=== PATIENT | female | born 1990 | race Caucasian/White ===

== ENCOUNTER → 2021-06-13 15:13 | Outpatient (BNVA) | payer MEDICAID, SELFPAY | PROVIDERS: Family Provider Family Medicine; PCP Obstetrics & Gynecology; Visit Provider Obstetrics & Gynecology | DX: R87.610 Atypical squamous cells of undetermined significance on cytologic smear of cervix (ASC-US) (principal); R87.810 Cervical high risk human papillomavirus (HPV) DNA test positive | CPT/HCPCS: 81025; 88305 ==

== ENCOUNTER → 2021-07-22 13:01 | Outpatient (BNVA) | payer MEDICAID, SELFPAY | PROVIDERS: Family Provider Family Medicine; PCP Obstetrics & Gynecology; Visit Provider Obstetrics & Gynecology | DX: Z20.822 Contact with and (suspected) exposure to COVID-19 (principal); Z30.2 Encounter for sterilization | CPT/HCPCS: 87635 ==

== ENCOUNTER 2021-07-27 07:01 | Day surgery (SDC) | payer MEDICAID, SELFPAY ==
[2021-07-25 10:44] VITALS: BMI 23.8
[2021-07-25 11:18] LABS: Basophils # 0.1 10^3/uL (0.0-0.1); Basophils % 0.6 %; Eosinophils # 0.3 10^3/uL (0.0-0.8); Eosinophils % 2.6 %; Hematocrit 42.5 % (37.0-47.0); Lymphocytes # 2.7 10^3/uL (0.8-4.8); Lymphocytes % 23.2 %; Mean Corpuscular HGB Conc 32.9 g/dL (30.0-36.0); Mean Corpuscular Hemoglobin 31.3 pg (28.0-34.0); Mean Corpuscular Volume 94.9 fl (81-99); Mean Platelet Volume 11.6 fL (7.4-10.4); Monocytes # 0.6 10^3/uL (0.2-0.9); Monocytes % 5.3 %; Neutrophils # 7.87 10^3/uL (1.8-7.7); Nucleated Red Blood Cells % 0 %; Platelet Count 354 10^3/cmm (130-400); Red Blood Count 4.48 10^6/uL (4.1-5.3); Red Cell Distribution Width 13.2 % (12.1-15.1); White Blood Count 11.6 10^3/uL (4.0-10.0)
[2021-07-25 11:37] LABS: Alanine Aminotransferase 11 U/L (0-33); Albumin Level 4.1 g/dL (3.5-5.2); Alkaline Phosphatase 44 IU/L (35-105); Anion Gap 13.4 (5-19); Aspartate Amino Transferase 13 U/L (0-32); Blood Urea Nitrogen 9 mg/dL (6-20); Calcium 8.9 mg/dL (8.5-10.5); Carbon Dioxide 24 mmol/L (22-29); Chloride 109 mmol/L (98-107); Globulin 2.4 g/dL (1.3-4.6); Glomerular Filtration Rate 83.7 mL/min (90-130); Glucose 68 mg/dL (65-115); Osmolality Calculated 291 mOsm/kg (285-295); Potassium 4.4 mmol/L (3.5-5.1); Sodium 142 mmol/L (136-145); Total Bilirubin 0.4 mg/dL (0.15-1.2); Total Protein 6.5 g/dL (6.6-8.7)
--- NOTE | 2021-07-25 12:04 | P.ANESASSM_ITS ---
Pre-Anesthetic Assessment Pre-Anesthetic Assessment: Height/Weight: Height 1.57 m Weight 58.967 kg Preop Diagnosis: Desire permanent sterilization Proposed Procedure: Operation Date: 07/27/21 08:30 Proposed Procedures rohit Reynolds,Removal of Tubes Sterilization 94521 Z30.2(Not Applicable) - Neeraj Sánchez MD Was Beta Max taken within 24 hours: N/A Was Clonidine taken within 24 hours: N/A Social: Social History: No tobacco Exam: Pre-Anes Outpt Exam: alert, oriented x 3, clear to auscultation bilaterally and regular rate & rhythm Airway: Submandibular: WNL Cervical ROM: WNL MP: 1 History/ROS: No significant history except as noted and No significant complaints Anesthetic Plan: ASA status: 1 Anesthesia: Anesthesia Evaluation and General Risk of > 500 ml blood loss (7ml/kg in children): No PFSH Anesthesia PFSH: Family History (Updated 06/03/21 @ 15:31 by Matilde Duffy LPN) Grandmother Family history of thyroid problem Diabetes Hypertension Mother Hypertension Father Cancer Brain tumors Chronic kidney disease (CKD) Denies family history of CAD (coronary artery disease) Clotting disorder Dementia Hyperlipidemia Psychiatric illness Suicide Anesthesia complication Bleeding disorder Family history of premature coronary artery disease Lung disease Stroke Female Reproductive History: Date of last menstrual period: 06/30/21 Data Anesthesia CBC & Chem 7: 07/25/21 10:40 07/25/21 10:40 Other Labs: Laboratory Results - last 48 hr 07/25/21 07/25/21 07/25/21 10:40 10:40 10:40 WBC 11.6 H RBC 4.48 Hgb 14.0 Hct 42.5 MCV 94.9 MCH 31.3 MCHC 32.9 RDW 13.2 Plt Count 354 MPV 11.6 H Neut % (Auto) 68.0 Lymph % (Auto) 23.2 [place] % (Auto) 5.3 Eos % (Auto) 2.6 Baso % (Auto) 0.6 Neut # (Auto) 7.87 H Lymph # (Auto) 2.7 [place] # (Auto) 0.6 Eos # (Auto) 0.3 Baso # (Auto) 0.1 Nucleated RBC % (auto) 0 Nucleated RBCs # 0.0 Sodium 142 Potassium 4.4 Chloride 109 H Carbon Dioxide 24 Anion Gap 13.4 BUN 9 Creatinine 0.8 GFR Calculation 83.7 L Glucose 68 Calculated Osmolality 291 Calcium 8.9 Total Bilirubin 0.4 AST 13 ALT 11 Alkaline Phosphatase 44 Total Protein 6.5 L Albumin 4.1 Globulin 2.4 Blood Type A Positive Rho(D) Type Positive Cardiac Studies: No Data to Display
[2021-07-27] VITALS (9 sets, daily range): BP systolic 83–119; BP diastolic 64–84; PULSE 62–97; RESP 16–21; TEMP 36.3–36.6; O2SAT 97–99
--- NOTE | 2021-07-27 07:19 | P.ANESUD_ITS ---
Pre-Anesthetic Update Pre-Anesthetic Assessment: Date of Surgery/Procedure: 07/27/21 Preop [place] gnosis: Desire permanent sterilization Proposed Procedure: Operation Date: 07/27/21 08:30 Proposed Procedures p Diann Reynolds,Removal of Tubes Sterilization 14948 Z30.2(Not Applicable) - Neeraj Sánchez MD Any changes to Pre-Anesthetic Assessment?: No Last Intake: Intake Last Liquid Date 07/26/21 Last Liquid Time 20:00 Last Solid Date 07/26/21 Last Solid Time 22:00 Labs Last 48hrs: Laboratory Results - last 48 hr 07/25/21 07/25/21 07/25/21 10:40 10:40 10:40 WBC 11.6 H RBC 4.48 Hgb 14.0 Hct 42.5 MCV 94.9 MCH 31.3 MCHC 32.9 RDW 13.2 Plt Count 354 MPV 11.6 H Neut % (Auto) 68.0 Lymph % (Auto) 23.2 [place] % (Auto) 5.3 Eos % (Auto) 2.6 Baso % (Auto) 0.6 Neut # (Auto) 7.87 H Lymph # (Auto) 2.7 [place] # (Auto) 0.6 Eos # (Auto) 0.3 Baso # (Auto) 0.1 Nucleated RBC % (a uto) 0 Nucleated RBCs # 0.0 Sodium 142 Potassium 4.4 Chloride 109 H Carbon Dioxide 24 Anion Gap 13.4 BUN 9 Creatinine 0.8 GFR Calculation 83.7 L Glucose 68 Calculated Osmolal ity 291 Calcium 8.9 Total Bilirubin 0.4 AST 13 ALT 11 Alkaline Phosphata se 44 Total Protein 6.5 L Albumin 4.1 Globulin 2.4 Blood Type A Positive Rho(D) Type Positive Antibody Screen Negative Vitals: Temperature 97.8 F 07/27/21 07:11 Temperature Source Temporal Artery S can 07/27/21 07:11 Pulse Rate 77 07/27/21 07:11 Pulse Rhythm 07/27/21 07:11 Pulse Strength 3+ Normal 07/27/21 07:11 Respiratory Rate 18 07/27/21 07:11 Blood Pressure 99/78 07/27/21 07:11 Blood Pressure Airam n 85 07/27/21 07:11 Pulse Oximetry 98 07/27/21 07:11 Oxygen Delivery Me thod 07/27/21 07:11 Exam: Pre-Anes Outpt Exam: alert, oriented x 3, clear to auscultation bilaterally and regular rate & rhythm Cardiac Studies: No Data to Display
[2021-07-27] MEDS: scopolamine 1.5 Patch 1 PATCH TRANSDERMA (07:24)
[2021-07-27] MEDS: sodium chloride 0.9% 500 ML IV (07:41)
--- NOTE | 2021-07-27 07:59 | W.PM.OPSUD ---
Surgery/Procedure H&P Update DATE OF PROCEDURE: July 27, 2021 DATE H&P PERFORMED: 07/25/21 H&P UPDATE INFORMATION: I have reviewed H&P completed within last 30 days, I have examined patient prior to procedure and No changes to prior documentation PREOP DIAGNOSIS: Desire permanent sterilization PLANNED PROCEDURE: Operation Date: 07/27/21 08:30 Proposed Procedures p Lap Fulg,Removal of Tubes Sterilization 68321 Z30.2(Not Applicable) - Neeraj Sánchez MD
[2021-07-27 08:15] LABS: OR HCG Qualitative Urine Negative (Negative)
[2021-07-27] MEDS: sodium chloride 0.9% 1,000 ML 30 ML IV (08:30)
--- NOTE | 2021-07-27 08:59 | P.OP_ITS ---
Operative Report Date of procedure: July 27, 2021 Pre-op Diagnosis: Desire permanent sterilization Post-op diagnosis: same Post-op Findings: Mental adhesions to the umbilicus. Normal uterus and tubes and ovaries Procedure Done: Laparoscopic bilateral salpingectomy sterilization Specimens removed/disposition: Left and right fallopian tubes Surgeon: Neeraj Sánchez MD Anesthesia: General Estimated blood loss (mL): 5 IV fluids (mL): 500 Urine output (mL): 100 Complications: None Condition: stable Disposition: PACU Procedure: After informed consent, the patient was taken to the operating room where general anesthesia was administered. She was placed in the dorsal lithotomy position and prepped and draped in sterile fashion. Pre-Procedure Time-Out verifying the correct patient identity, correct procedure verified with consent, correct site and side, correct patient position, availability of correct implants and any special equipment or requirements was performed and acknowledge by the OR team. The patient was examined under anesthesia and found to have a normal uterus with normal adnexa. A Thrasher catheter was placed. An open side speculum was placed in the vagina, and the anterior lip of cervix was grasped with the single toothed tenaculum. A uterine manipulator was advanced into the endocervical canal and uterus. The tenaculum was removed after uterine manipulator was secured. The speculum was removed from the vagina. An incision was made with a scalpel in the left upper quadrant. While tenting up on the abdomen, a 5 mm Opitc view trocar and sleeve were admitted into the abdomen and laparoscopic confirmation of location was achieved. A second incision was made 3 cm above the symphysis pubis, and a 5 mm trocar sleeves were admitted into the abdomen under direct laparoscopic visualization without complication. A survey revealed normal abdominal anatomy with the exception of omental adhesion to the umbilicus abdominal wall. A 5 mm blunt probe was advanced through the second trocar sleeve, and light manipulation of ovaries and uterus to assess the posterior aspects was performed. The pelvic survey shows normal uterus, left and right adnexa. The left ovary was noted with a follicular cyst. The patient was placed into Trendelenburg position. The fallopian tubes were inspected bilaterally and the fimbriated ends of the fallopian tubes were visualized bilaterally. Attention was then directed to the right side. The fal lopian tube and mesosalpinx were grasped and the underlying mesosalpinx was cauterized and cut using the Voyant device. Serial cauterization and cutting was used to separate the fallopian tube from the underlying mesosalpinx until it could be amputated cutting it approximated 2 cm from the cornua. Attention was then turned to the contralateral fallopian tube, which was removed in similar fashion. Both specimens were removed through the trocar and sent to pathology. The instruments were removed. The suprapubic trocar port was removed under direct visualization insuring good hemostasis. The carbon dioxide was allowed to escape from the abdomen. The intraumbilical trocar sleeve was withdrawn under visualization with laparoscope in the sleeve to insure hemostasis. The skin incisions were closed with 3-O Monocryl subcuticular stich and Dermabond. The instruments were removed from the vagina, and excellent hemostasis was noted. The patient tolerated the procedure well, and sponge, lap and needle count were correct times two. The patient was taken to the recovery room in good condition.
[2021-07-27] MEDS: fentaNYL 50 mcg/mL INJ 2mL IVP ×2 (09:17→09:22)
--- NOTE | 2021-07-27 09:21 | SUR.PHASEI ---
BUFFER OPERATOR ADMIN AND DOCUMENTED 30MG OF TORADOL
--- NOTE | 2021-07-27 15:46 | ANE.PACU2 ---
Inpatient post-anesthesia follow up: Airway intact: Yes Vital signs: Temperature 97.8 F Pulse Rate 67 Respiratory Rate 18 Blood Pressure 107/69 Pulse Oximetry 99 Oxygen Delivery Me thod Room Air Oxygen Flow Rate Fraction of Inspir ed Oxygen Hydration adequate: Yes Nausea and vomiting: No Pain level: 2 Mental status: Baseline
== END 2021-07-27 10:20 | disposition home or self-care (01) ==
PROVIDERS: PCP Family Medicine; Visit Provider Obstetrics & Gynecology
PROC: (CPT 58661; principal; 2021-07-27 08:30)
DX: Z30.2 Encounter for sterilization (principal); Z82.49 Family history of ischemic heart disease and other diseases of the circulatory system; Z83.3 Family history of diabetes mellitus; N73.6 Female pelvic peritoneal adhesions (postinfective)
CPT/HCPCS: 58661; 36415; 80053; 81025; 84703; 85025; 86850; 86900; 88302; J1100; J2405; J2704; J3010; J3490; J7030; J7040

== ENCOUNTER 2023-08-24 12:06 | Emergency (ER) | payer MEDICAID, SELFPAY ==
[2023-08-24 12:33] VITALS: BP 130/83; PULSE 74; RESP 18; TEMP 36.7; O2SAT 99; BMI 28.3
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
[2023-08-24] MEDS: eye irrigation 30 mL Btl EYE-RIGHT (13:53)
[2023-08-24] MEDS: fluorescein 1 mg Strip EYE-RIGHT (13:54)
[2023-08-24] MEDS: tetracaine 0.5% Op Soln 4 mL Btl 1 DROP EYE-RIGHT (13:54)
== END 2023-08-24 14:30 | disposition home or self-care (01) ==
PROVIDERS: Emergency Provider Physician Assistant; PCP Family Medicine
DX: S05.01XA Injury of conjunctiva and corneal abrasion without foreign body, right eye, initial encounter (principal); W20.8XXA Other cause of strike by thrown, projected or falling object, initial encounter
CPT/HCPCS: 99283

== ENCOUNTER → 2023-10-18 11:58 | Outpatient (BNVA) | payer MEDICAID, SELFPAY | PROVIDERS: PCP Family Medicine; Visit Provider Nurse Practitioner Family | DX: R19.7 Diarrhea, unspecified (principal); A08.4 Viral intestinal infection, unspecified | CPT/HCPCS: 87400 ==

== ENCOUNTER 2024-03-05 14:00 | Outpatient (CLI) | payer MEDICAID, SELFPAY ==
--- NOTE | 2024-03-05 14:30 | US_ITS ---
WS: [id number] US pelv w/transvag [id number] HISTORY: R10.2 - Pelvic and perineal pain COMPARISON: 02/06/2016 Uterus: 8.0 cm x 5.3 cm x 4.0 cm. Normal size anteverted uterus. No fibroid or mass. Endometrium: 0.6 cm. Normal. Right ovary: 2.0 cm x 1.8 cm x 2.2 cm. Normal size and vascularity, no cystic or solid masses. Left ovary: 1.7 cm x 2.3 cm x 1.6 cm. Normal size and vascularity, no cystic or solid masses. No free fluid in the cul-de-sac. US/US pelv w/transvag [id number] IMPRESSION: Normal pelvic ultrasound.
== END 2024-03-05 14:01 | disposition home or self-care (01) ==
PROVIDERS: PCP Family Medicine; Visit Provider Obstetrics & Gynecology
DX: R10.2 Pelvic and perineal pain (principal)
CPT/HCPCS: 76830; 76856

== ENCOUNTER → 2024-04-10 08:16 | Outpatient (BNVA) | payer MEDICAID, SELFPAY | PROVIDERS: PCP Family Medicine; Visit Provider Obstetrics & Gynecology | DX: R87.613 High grade squamous intraepithelial lesion on cytologic smear of cervix (HGSIL) (principal); R87.610 Atypical squamous cells of undetermined significance on cytologic smear of cervix (ASC-US); R87.810 Cervical high risk human papillomavirus (HPV) DNA test positive | CPT/HCPCS: 81025; 88305 ==

== ENCOUNTER 2024-11-03 13:16 | Emergency (ER) | payer BC, SELFPAY ==
[2024-11-03 13:26] VITALS: BP 132/94; PULSE 106; RESP 14; TEMP 36.8; O2SAT 100; BMI 21.0
[2024-11-03 13:59] LABS: Basophils % 0.2 %; Eosinophils # 0.1 10^3/uL (0.0-0.8); Eosinophils % 0.7 %; Hematocrit 42.9 % (36-47); Lymphocytes # 3.2 10^3/uL (0.8-4.8); Lymphocytes % 25.9 %; Mean Corpuscular HGB Conc 32.6 g/dL (30-55); Mean Corpuscular Hemoglobin 30.4 pg (27-33); Mean Corpuscular Volume 93.3 fl (85-98); Mean Platelet Volume 10.8 fL (7.4-10.4); Monocytes # 0.6 10^3/uL (0.2-0.9); Monocytes % 4.7 %; Neutrophils # 8.35 10^3/uL (1.8-7.7); Neutrophils % 68.2 %; Nucleated Red Blood Cells % 0 %; Platelet Count 343 10^3/cmm (157-399); Red Cell Distribution Width 12.8 % (12.1-15.1); White Blood Count 12.25 10^3/uL (3.29-11.43)
[2024-11-03 14:16] LABS: Alanine Aminotransferase 23 U/L (0-33); Albumin Level 4.1 g/dL (3.5-5.2); Alkaline Phosphatase 51 U/L (35-105); Aspartate Amino Transferase 20 U/L (0-32); Blood Urea Nitrogen 13 mg/dL (6-20); Carbon Dioxide 19 mmol/L (22-29); Chloride 101 mmol/L (98-107); Creatinine Clr Calc Pharmacy 78.9075; Globulin 2.8 g/dL (1.3-4.6); Glomerular Filtration Rate 81.6 mL/min (90-130); Glucose 84 mg/dL (65-115); Osmolality Calculated 281 mOsm/kg (285-295); Sodium 136 mmol/L (136-145); Total Bilirubin 0.8 mg/dL (0.15-1.2); Total Protein 6.9 g/dL (6.6-8.7)
[2024-11-03 14:25] LABS: HCG, Serum Qual Negative (Negative)
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
[2024-11-03 15:00] LABS: Bilirubin Urine Negative (Negative); Blood Urine 1+ (Negative); Glucose Urine UA Negative (Normal); Ketones Urine 1+ (Negative); Leukocyte Esterase Urine 2+ (Negative); Nitrate Urine Negative (Negative); Protein Urine Negative (Negative); Specific Gravity, Urine 1.015 (1.005-1.030); Urine Appearance Cloudy (CLEAR); Urine Color Yellow (Yellow); Urobilinogen Urine 0.2 mg/dL (Negative); pH Urine 5.5 (5-7)
[2024-11-03 15:05] LABS: Add Urine Microscopic? YES; Bacteria Urine 1+ /hpf; Hyaline Casts Urine 0-4 /lpf; Squamous Epithelial Cell Urine 0-5 /hpf (0-5); WBC Urine 51-100 /hpf (0-5)
[2024-11-03 15:07] LABS: Add Urine Culture? Yes
[2024-11-03 16:47] LABS: Trichomonas vaginalis (PCR) NOT DETECTED
[2024-11-03 17:11] LABS: Chlamydia Trachomatis NOT DETECTED; Neisseria Gonorrhea NOT DETECTED
== END 2024-11-03 16:28 | disposition home or self-care (01) ==
PROVIDERS: Emergency Provider Emergency Medicine; PCP Family Medicine
DX: R10.2 Pelvic and perineal pain (principal)
CPT/HCPCS: 36415; 80053; 81001; 84703; 85025; 87086; 87491; 87591; 87661; 99283